=== PATIENT | male | born 1985 | race African-American/Black ===

== ENCOUNTER 2017-06-13 11:16 | Emergency (ER) | payer OTHER ==
[~2017-06-13] VITALS: Ht 172.7 cm; Wt 81.5 kg
[~2017-06-13 11:16] MED LIST: RISP0.252 PO
[2017-06-13] MEDS ORDERED: IBUPROFEN 600 MG TABLET PO ONE (12:45)
[2017-06-13 13:05] VITALS: BP 126/63
== END 2017-06-13 13:40 | disposition home or self-care (01) ==
LOC: EMS 11:18
DX: M20.029 Boutonniere deformity of unspecified finger(s) (principal); F20.9 Schizophrenia, unspecified; F17.210 Nicotine dependence, cigarettes, uncomplicated; Z71.6 Tobacco abuse counseling
CPT/HCPCS: 99284; 99406